=== PATIENT | female | born 1985 | race Caucasian/White ===

== ENCOUNTER 2022-09-22 15:58 | Inpatient (IN) | payer MEDICAID ==
[~2022-09-22] VITALS: Ht 149.9 cm; Wt 56.7 kg
[2022-09-22] MEDS ORDERED: OXYTOCIN/0.9 % SODIUM CHLORIDE 1,000 ML IV SCH (16:30)
[2022-09-22] MEDS ORDERED: NALBUPHINE HCL 10 MG/ML AMP IVP PRN (16:30)
[2022-09-22] MEDS ORDERED: LR 500 ML IV ONE (16:30)
[2022-09-22] MEDS ORDERED: AMPICILLIN SODIUM 2 GM in NS 100 ML IV ONE (17:00)
[2022-09-22 17:31] LABS: BASOPHILS % (AUTO) 0.1 % (0.0-2.0); EOSINOPHILS % (AUTO) 0.1 % (0.0-4.0); HEMATOCRIT 42.2 % (36-48); HEMOGLOBIN 14.1 g/dL (12.0-16.0); LYMPHOCYTES # (AUTO) 0.8 K/uL (1.0-5.5); LYMPHOCYTES % (AUTO) 6.6 % (20.5-51.5); MEAN CORPUSCULAR HEMOGLOBIN 31 pg (27-31); MEAN CORPUSCULAR HGB CONC 34 % (32-36); MEAN CORPUSCULAR VOLUME 93 fL (79.0-98.0); MONOCYTES # (AUTO) 0.4 K/uL (0.0-1.0); MONOCYTES % (AUTO) 3.4 % (1.7-9.3); NEUTROPHILS # (AUTO) 10.9 K/uL (1.8-7.7); NEUTROPHILS % (AUTO) 89.8 % (40.0-70.0); PLATELET COUNT (AUTO) 174 K/uL (130-430); RED BLOOD CELL COUNT(AUTO) 4.52 MIL/uL (4.2-6.2); RED CELL DISTRIBUTION WIDTH 15.3 % (9.0-15.0); WHITE BLOOD COUNT (AUTO) 12.2 K/uL (4.8-10.8)
[2022-09-22] MEDS: LR 1,000 ML IV SCH ×2 (17:48→23:12)
[2022-09-22 17:55] VITALS: BP_SYST 110; PULSE 92; RESP 18; TEMP 98.8
[2022-09-22] MEDS: AMPICILLIN SODIUM 1 GM in NS 50 ML IV SCH (21:56)
[2022-09-22] MEDS ORDERED: OXYTOCIN 10 UNIT/ML VIAL IM ONE (23:15)
[2022-09-23] MEDS ORDERED: LIGHT MINERAL OIL 10 ML VIAL MC ONE (01:15)
[2022-09-23] MEDS ORDERED: LIDOCAINE PF 1% 30ML(POUR BTL) INJ ONE (01:16)
[2022-09-23] MEDS ORDERED: NALOXONE HCL 0.4 MG/ML AMP (NARCAN) ONE (01:16)
[2022-09-23] MEDS: AMPICILLIN SODIUM 1 GM in NS 50 ML IV SCH (02:18)
[2022-09-23] MEDS ORDERED: MORPHINE 4 MG INJ. 4 MG/ML VIAL IVP PRN (03:30)
[2022-09-23] MEDS ORDERED: HYDROcodone/ACETAMIN 5-325 MG TAB (NORCO/ VICODIN) PO PRN (04:15)
[2022-09-23] MEDS ORDERED: OXYCODONE/ACETAMINOPHEN 5-325 TABLET PO PRN (04:15)
[2022-09-23] MEDS: OXYCODONE/ACETAMINOPHEN 5-325 TABLET PO PRN ×6 (05:50→20:22)
[2022-09-23] MEDS: DOCUSATE SODIUM 100 MG CAPSULE PO SCH (09:14)
[2022-09-23] MEDS: IBUPROFEN 600 MG TABLET PO SCH ×2 (12:15→17:34)
[2022-09-23] MEDS ORDERED: WITCH HAZEL LEAF 1 MED.PAD MED.PAD TP PRN (16:00)
[2022-09-23] MEDS ORDERED: DERMOPLAST SPRAY TP PRN (16:00)
[2022-09-24] MEDS: IBUPROFEN 600 MG TABLET PO SCH ×3 (00:03→12:12)
[2022-09-24] MEDS: OXYCODONE/ACETAMINOPHEN 5-325 TABLET PO PRN ×3 (04:11→12:13)
[2022-09-24 06:47] LABS: HEMATOCRIT 35.1 % (36-48); HEMOGLOBIN 11.9 g/dL (12.0-16.0)
[2022-09-24] MEDS: DOCUSATE SODIUM 100 MG CAPSULE PO SCH (08:54)
[2022-09-25 19:07] LABS: FTA-Ab (T PALLIDUM) Non Reactive (Non Reactive)
== END 2022-09-24 14:45 | disposition home or self-care (01) | DRG 560 ==
LOC: SPU 15:58 → OBSVTOIN 15:58
PROVIDERS: ADMIT Obstetrics & Gynecology; ATTEND Obstetrics & Gynecology
PROC: 10E0XZZ Delivery of Products of Conception, External Approach (ICD-10-PCS; principal; 2022-09-23)
DX: O70.0 First degree perineal laceration during delivery (principal); Z37.0 Single live birth; Z3A.38 38 weeks gestation of pregnancy
CPT/HCPCS: 36415; 81002; 85018; 85025; 86592; 86780; 86886; 86900; 86901; J0290; J2001; J2310; J2590